=== PATIENT | female | born 1995 | race Caucasian/White ===

== ENCOUNTER 2017-10-15 20:54 | Emergency (ER) | payer BC ==
[~2017-10-15] VITALS: Ht 154.9 cm; Wt 50.2 kg
[2017-10-15 21:33] LABS: URINE HCG NEGATIVE (NEG)
[2017-10-15 21:37] LABS: CLARITY,URINE CLOUDY (Clear); COLOR,URINE YELLOW (Yellow); GLUCOSE, URINE NEGATIVE (Neg); KETONES,URINE TRACE mg/dl (Neg); LEUKOCYTE ESTERASE ,URINE LARGE (Neg); NITRITES, URINE NEGATIVE (Neg); OCCULT BLOOD,URINE LARGE (Neg); PROTEIN,URINE NEGATIVE (Neg); UA COLLECTION TYPE CLN CATCH MIDSTREAM; UROBILINOGEN,URINE 0.2 E.U/dL (0.2-1.0)
[2017-10-15] MEDS ORDERED: nitrofuran/nitrofuran macrocrysal 100 MG capsule PO ONE (21:45)
[2017-10-15] MEDS ORDERED: NITR100C6 PO (21:47)
[2017-10-15 21:48] LABS: BACTERIA,URINE FEW /HPF (Neg); SQUAMOUS EPITHELIAL CELL,UR FEW /LPF (FEW); WBC CLUMPS,URINE MODERATE /HPF (NEGATIVE); WBC,URINE 30-50 /HPF (0-4)
[2017-10-15 22:02] VITALS: BP 121/73
== END 2017-10-15 22:04 | disposition home or self-care (01) ==
LOC: ER 20:55
DX: N39.0 Urinary tract infection, site not specified (principal); M54.5 Low back pain; Z79.899 Other long term (current) drug therapy
CPT/HCPCS: 81001; 81025; 87077; 87088; 87186; 99284